=== PATIENT | female | born 1995 | race African-American/Black ===

== ENCOUNTER 2017-05-06 18:32 | Emergency (ER) | payer OTHER ==
[~2017-05-06] VITALS: Ht 170.2 cm; Wt 104.3 kg
[2017-05-06 19:39] LABS: URINE BILIRUBIN NEGATIVE (Negative); URINE BLOOD 3+ (Negative); URINE CLARITY CLEAR; URINE COLOR YELLOW; URINE GLUCOSE-RANDOM* NEGATIVE (Negative); URINE KETONES NEGATIVE (Negative); URINE LEUKOCYTES NEGATIVE (Negative); URINE NITRITE NEGATIVE (Negative); URINE PROTEIN (DIPSTICK) NEGATIVE (Negative); URINE UROBILINOGEN 0.2 E.U./dl (0.2-1.0)
[2017-05-06 19:48] LABS: URINE RBC 3-10 Few /HPF (0-2); URINE WBC 0-5 Rare /HPF (0-5)
[2017-05-06 19:49] LABS: CASTS None Seen /LPF (None Seen); CRYSTALS None Seen /LPF (None Seen); SQUAMOUS 4-10 Moderate /LPF (0-3)
[2017-05-06] MEDS ORDERED: TIZANIDINE HCL4 MG PO (19:53)
[2017-05-06] MEDS ORDERED: IBUPROFEN 600600 M1 PO (19:53)
[2017-12-07] MEDS ORDERED: NORFLEX100 MG PO (21:22)
== END 2017-05-06 20:09 | disposition home or self-care (01) ==
LOC: ER 18:32
PROVIDERS: Nurse Practitioner
DX: S39.012A Strain of muscle, fascia and tendon of lower back, initial encounter (principal); X50.0XXA Overexertion from strenuous movement or load, initial encounter; Y93.89 Activity, other specified; Y92.89 Other specified places as the place of occurrence of the external cause; Y99.0 Civilian activity done for income or pay

== ENCOUNTER 2017-07-21 09:17 | Emergency (ER) | payer OTHER ==
[~2017-07-21] VITALS: Ht 170.2 cm; Wt 104.3 kg
--- NOTE | ~2017-07-21 | EKG ---
[address] [address] ELECTROCARDIOGRAM REPORT Name: DONNIE ANDRES Room #: [facility]#: [id number] Admission: 07/21/17 Attend Phys: Discharge: 07/21/17 Date of : [birth year] Report #: [id number] THIS REPORT FOR: //name// [facility] ED Test Date: 2017-07-21 Test Time: 09:21:57 Pat Name: DONNIE ANDRES Department: Room: Gender: F Commission Associate: [facility] : [id number] Requested By: Katarina Reese Order Number: [id number] MD: Leonard Faria Measurements Intervals [place] Rate: 110 P: 60 [place]: 179 QRS: -2 QRSD: 84 T: -2 QT: 341 QTc: 462 Interpretive Statements Sinus tachycardia Borderline T wave abnormalities No previous ECG available for comparison Electronically Signed On 07-21-2017 17:03:21 CDT by Leonard Faria [email or web address] <ELECTRONICALLY SIGNED> By: Leonard Faria MD, [facility] 07/21/17 1703 0921 0 Leonard Faria MD, FACC /EPI
[~2017-07-21 09:17] MED LIST: IBUPROFEN 600600 M1 PO; TIZANIDINE HCL4 MG PO
[2017-07-21] MEDS ORDERED: ZANTAC 150MG T150 MG PO (10:30)
[2017-07-21 10:40] VITALS: BP 125/73
== END 2017-07-21 14:30 | disposition home or self-care (01) ==
LOC: ER 09:17
DX: K21.0 Gastro-esophageal reflux disease with esophagitis (principal)

== ENCOUNTER 2017-11-29 22:12 | Emergency (ER) | payer OTHER ==
[~2017-11-29] VITALS: Ht 170.2 cm; Wt 102.1 kg
[~2017-11-29 22:12] MED LIST changes: +ZANTAC 150MG T150 MG PO
[2017-11-29] MEDS ORDERED: ZPAK PO (22:52)
[2017-11-29 23:17] VITALS: BP 126/71
== END 2017-11-29 23:18 | disposition home or self-care (01) ==
LOC: ER 22:12
DX: J32.9 Chronic sinusitis, unspecified (principal); J20.9 Acute bronchitis, unspecified; M54.9 Dorsalgia, unspecified; G89.29 Other chronic pain